=== PATIENT | male | born 2005 | race Caucasian/White ===

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

== ENCOUNTER 2025-01-23 11:41 | Emergency (ER) | payer BC, SELFPAY ==
[2025-01-23 12:02] VITALS: BP 169/84; PULSE 125; RESP 18; TEMP 37.3; O2SAT 97
--- NOTE | 2025-01-23 12:22 | ED.SKABFB ---
HPI - Skin/Abscess/Foreign Bdy General Date Seen: 01/23/25 Chief complaint: Skin/Abscess/Foreign Body Stated complaint: fish hook R foot Time Seen by Provider: 01/23/25 11:47 Source: patient Mode of arrival: ambulatory Limitations: no limitations History of Present Illness HPI narrative: Patient is a 19-year-old male presenting for fishhook in the plantar aspect of his right foot. He states it was a diffuse new fish hook as far as he is aware. Unsure if it is barbed. The last tetanus shot was in 2016. No other injuries noted. Related Data Home Medications ?Medication ?Instructions ?Recorded ?Confirmed loratadine 10 mg tablet (Claritin) 10 mg PO DAILY 03/25/23 01/10/24 montelukast 10 mg tablet 10 mg PO DAILY 01/10/24 01/23/25 Allergies Allergy/AdvReac Type Severity Reaction Status Date / Time No Known Drug Allergies Allergy Verified 01/23/25 12:02 Review of Systems Narrative: Pertinent systems reviewed and were negative unless stated in HPI PFSH PFSH Medical History Asthma ?J45.909 - Unspecified asthma, uncomplicated (ICD-10) Surgical History S/P ORIF (open reduction internal fixation) fracture (04/04/23) ?Z98.890 - Other specified postprocedural states (ICD-10) ?Z87.81 - Personal history of (healed) traumatic fracture (ICD-10) Family History Maternal Grandmother No problems noted. Social History Smoking Status: Never smoker Do you use any of these nicotine containing products: None How often do you have a drink containing alcohol: never AUDIT-C Alcohol total score: 0 Non-prescribed substance use: denies use Caffeine: No (2-3 pops/day) Exam Narrative: Exam Narrative: Const: Well-nourished, Well-developed, in mild distress Eyes: PERRL, no conjunctival injection, and symmetrical lids HENT: Atraumatic external nose and ears. Moist mucous membranes. MSK:Extremities w/o deformity, Normal Active ROM Skin: Warm, Dry. No rashes or lesions. The fishhook seen at the right plantar aspect of foot Neuro: Normal Muscle tone, No focal neurological deficits. Psych: Awake, Alert, & Oriented x3. Appropriate mood and affect. Const: Vital Signs, click to edit/add: Vital Signs - 24 hr 01/23/25 12:02 Temperature 99.1 F Pulse Rate [Pulse Oximeter] 125 H Respiratory Rate 18 Blood Pressure [Ri ght Upper Arm] 169/84 H Pulse Oximetry 97 Oxygen Delivery Me thod Room Air Course Vital Signs Vital signs: Initial Vital Signs Temperature 99.1 F 01/23/25 12:02 Temperature Source Temporal Artery Scan 01/23/25 12:02 Pulse Rate 125 H 01/23/25 12:02 Respiratory Rate 18 01/23/25 12:02 Blood Pressure 169/84 H 01/23/25 12:02 Blood Pressure Mean 112 H 01/23/25 12:02 Blood Pressure Position Sitting 01/23/25 12:02 Pulse Oximetry 97 01/23/25 12:02 Oxygen Delivery Method Room Air 01/23/25 12:02 Vital Signs Temperature 99.1 F 01/23/25 12:02 Pulse Rate 125 H 01/23/25 12:02 Respiratory Rate 18 01/23/25 12:02 Blood Pressure 169/84 H 01/23/25 12:02 Pulse Oximetry 97 01/23/25 12:02 Oxygen Delivery Method Room Air 01/23/25 12:02 Temperature 99.1 F 01/23/25 12:02 Pulse Rate 125 H 01/23/25 12:02 Respiratory Rate 18 01/23/25 12:02 Blood Pressure 169/84 H 01/23/25 12:02 Pulse Oximetry 97 01/23/25 12:02 Oxygen Delivery Method Room Air 01/23/25 12:02 MDM - Skin/Abscess/Foreign Bdy MDM Narrative Medical decision making narrative: Patient is a 19-year-old male presenting for removal fishhook in his right foot. I was able to remove his sock with a trauma nerissa. The fishhook looks to have just the tip just within the skin. Unsure if it is barbed. It was decided I will do a small amount of numbing to the end of the fishhook. Lexapro when I grabbed it with the pliers to quickly just popped out with minimal effort. There is no isak. Does appear to be intact. I do not believe imaging is necessary as the fishhook appears fully intact. Will hold off on antibiotics. The puncture wound was very superficial. Will update his tetanus. Patient will be discharged. Discharge Plan Discharge Clinical Impression: Fish hook in foot Patient Disposition: Home, Self-Care Condition: Stable Additional Instructions: Your fine to the walk on the foot. Try to wear socks and shoes as little eyes you can for the next couple days. Return for signs of infection or any other concerning abnormalities Prescriptions: No Action montelukast 10 mg tablet 10 mg PO DAILY loratadine [Claritin] 10 mg tablet 10 mg PO DAILY Follow Up/Referrals: Oriana Gonzalez MD [Primary Care Provider] - Stand Alone Forms: [facility] Info Instructions Procedures Foreign Body Removal Site: right and foot Description of foreign body: fish hook Sedation/Analgesia: none Technique: manual removal Confirmed by:: direct visualization Complications: none Post-procedure exam: awake, alert Neurovascular: no change from pre-procedure
[2025-01-23] MEDS: TETANUS/DIPHTH/PERTUSSIS 0.5 ML SYRINGE IM (12:40)
[2025-01-23 12:51] VITALS: PULSE 101; RESP 16; O2SAT 99
== END 2025-01-23 12:51 | disposition home or self-care (01) ==
PROVIDERS: Emergency Provider Student in an Organized Health Care Education/Training Program; PCP Family Medicine
DX: S90.851A Superficial foreign body, right foot, initial encounter (principal); W45.8XXA Other foreign body or object entering through skin, initial encounter
CPT/HCPCS: 10120; 90471; 90715; 99282; 99283